=== PATIENT | male | born 1980 | race Asian ===

== ENCOUNTER 2020-03-25 01:51 | Emergency (ER) | payer BC ==
[~2020-03-25] VITALS: Ht 180.3 cm; Wt 94.0 kg
[2020-03-25 01:59] VITALS: Ht 180.3 cm; Wt 94.0 kg
[2020-03-25 03:32] LABS: BASOPHIL % 0.6 % (0-2); PLATELET COUNT 192 x10^3mcL (130-400); RED CELL DISTRIBUTION WIDTH 12.1 % (11.5-14.5)
[2020-03-25 04:12] LABS: CALCIUM 9.2 mg/dL (8.5-10.1); CARBON DIOXIDE 27.6 mmol/L (21-32); CHLORIDE SERUM 103 mmol/L (98-107); CREATININE SERUM 0.9 mg/dL (0.7-1.3); GFR1 > 60 mL/min; GLUCOSE SERUM 97 mg/dL (74-106); POTASSIUM SERUM 4.1 mmol/L (3.5-5.1); SODIUM SERUM 139 mmol/L (136-145)
[2020-03-25 04:26] LABS: FREE T4 1.05 ng/dL (0.76-1.46)
[2020-03-25 05:22] VITALS: BP 127/91
== END 2020-03-25 05:22 | disposition home or self-care (01) ==
LOC: ED 01:51
PROVIDERS: Student in an Organized Health Care Education/Training Program
DX: R00.2 Palpitations (principal); R07.89 Other chest pain; R06.02 Shortness of breath; N20.0 Calculus of kidney
CPT/HCPCS: 83880; 84439; Q0092